=== PATIENT | male | born 1950 | race Caucasian/White ===

== ENCOUNTER 2024-04-15 22:38 | Emergency (ER) | payer MEDICARE, SELFPAY ==
[2024-04-15 22:38] VITALS: BMI 23.5
[2024-04-15 22:57] VITALS: BP 151/83; PULSE 91; RESP 18; TEMP 36.9; O2SAT 99
--- NOTE | 2024-04-15 23:01 | XR_ITS ---
Examination: Ultrasound soft tissue chest Technique: Multiple high resolution grayscale sonographic images soft tissue chest Exam date and time: April 15, 2024 11:15 PM Indications: Palpable lump on the left chest Larger the last month Findings: Soft tissue mass 2.1 x 1.2 x 2.2 cm at the area concern left chest Impression: Mixed echogenic soft tissue mass in the chest at the area concern 2.1 x 1.2 x 2.2 cm Differential would include complex cyst, abscess, less likely soft tissue tumor, clinical correlation advised
--- NOTE | 2024-04-15 23:02 | PD.EDRME ---
Rapid Medical Screening Exam [facility] Arrival date/time: 04/15/24 22:38 73M with history of HTN presents to ED with several weeks of worsening painful growth on chest. Chief Complaint: Chest Pain Vital signs: Vital Signs Temperature 98.5 F 04/15/24 22:57 Pulse Rate 91 04/15/24 22:57 Respiratory Rate 18 04/15/24 22:57 Blood Pressure 151/83 H 04/15/24 22:57 Pulse Oximetry (%) 99 04/15/24 22:57 Oxygen Delivery Method Room Air 04/15/24 22:57
--- NOTE | 2024-04-16 01:18 | EDNOTE_ITS ---
ED Skin Abcess FB-RME/HPI General Chief complaint: Chest Pain Stated complaint: CHEST PAIN X 3 WEEKS Arrival date/time: 04/15/24 22:38 RME / HPI RME / HPI narrative: 04/15/24 22:38 73M with history of HTN presents to ED with several weeks of worsening painful growth on chest. This section includes all my notes and documentations, including HPI, PE, and ED course. Junaid Newby MD HPI: 73-year-old male here with a couple week history of enlarging red lump in the anterior chest with swelling and warmth and pain. No fever or chills. No other complaints. ROS: Musculoskeletal: negative except as documented in HPI. Skin: negative except as documented in HPI. Neurological: negative except as documented in HPI. Physical Exam: General: Alert and oriented. No acute distress when remaining still. Eyes: Conjunctivae and lids clear. Lungs: No respiratory distress. Skin: Warm and dry. In the left anterior chest, there is a walnut sized fluctuant mass with erythema and edema and calor and soft tissue tenderness. Neuro: Alert and oriented X 3. At this point, diagnoses include skin abscess. Abscess I&D procedure note: The abscess area was prepped and draped in the usual sterile fashion. Using #15 blade, 0.5 cm incision made. Profuse pus drained out. Applied new dressing. Patient tolerated well. Treatment here included Augmentin and clindamycin. Provided good wound care instructions. Based on my best medical judgment, made decision no further evaluation or treatment indicated at this time. Patient understands and agrees to the discharge instructions customized and printed, see below. Discharge Instructions from Dr. Newby: ?Your abscess was successfully incised and drained pus. ?Take Augmentin and clindamycin to help kill the germs causing your infection. ?Three times per day (before the wound closes), try to squeeze out more pus and clean it with soap and water. ?After drying as much as possible, apply new dressing. ?See your private doctor of your choice on 04/17/2024 for recheck and further care, to make sure you are healing properly without any complications. ?Seek immediate medical care with fever > 100.4, spreading redness, or with any concerns. Junaid Newby MD Related Data Home Medications ?Medication ?Instructions ?Recorded ?Confirmed hydrochlorothiazide 25 mg tablet 25 mg PO QDAY 07/04/18 12/08/18 aspirin 81 mg chewable tablet 81 mg PO DAILY 12/08/18 12/08/18 Previous Rx's ?Medication ?Instructions ?Recorded amoxicillin 875 mg-potassium 1 tab PO BID #10 tabs 04/16/24 clavulanate 125 mg tablet clindamycin HCl 300 mg capsule 300 mg PO TID 5 days #15 caps 04/16/24 Allergies Allergy/AdvReac Type Severity Reaction Status Date / Time No Known Allergies Allergy Verified 04/15/24 22:40 Course Quality Measures none Orders Category Date Time Status EKG (ED Only) Stat Exams 04/15/24 22:39 Stop Req US soft tissue head neck Stat Exams 04/15/24 23:01 Completed Amoxicillin/Pot Clav 875 [Augmentin 875] Med 04/16/24 01:12 Discontinued 1 tab PO X1 ONE Clindamycin [Cleocin] Med 04/16/24 01:12 Discontinued 300 mg PO X1 ONE Vital Signs Vital signs: Vital Signs Temperature 98.5 F 04/15/24 22:57 Pulse Rate 91 04/15/24 22:57 Respiratory Rate 18 04/15/24 22:57 Blood Pressure 151/83 H 04/15/24 22:57 Pulse Oximetry (%) 99 04/15/24 22:57 Oxygen Delivery Method Room Air 04/15/24 22:57 Skin / Abscess / Foreign Body Patient data External records reviewed:: [facility] previous records Clinical information provided by:: patient Social determinants that could affect healthcare access:: none Patient has the following chronic illnesses:: See chart How is presenting disease/condition affected by chronic disease/condition?: uneffected by Evaluation data The following diagnostics were reviewed and interpreted by me:: radiology exam(s) Lab and/or radiology exams considered but not ordered:: None Interpretation Summary: Skin abscess Medications / Prescriptions Medications or Prescriptions considered but not ordered:: None Medication administrations:: Medication Administration History Discontinued Medications Amoxicillin/Clavulanate Potassium (Amoxicillin/Pot Clav 875 Tablet) 1 tab PO X1 ONE Stop: 04/16/24 01:13 Clindamycin HCl (Clindamycin 150 Mg Capsule) 300 mg PO X1 ONE Stop: 04/16/24 01:13 Augmentin and clindamycin Consultations Consultation(s) initiated? (list below): No Diagnosis Skin/Abscess Differential Diagnosis: abscess of skin or subcutaneous tissue, cellulitis and insect bites Most likely diagnosis given after review of the tests above:: Abscess Admission Indicated Admission indicated?: not indicated Explain why admission is indicated or not indicated:: No admission criteria Admission Request Was there a request for admission?: No Disposition Plan Disposition Plan: Discharge Discharge Attestation Discharge Attestation: The patient and all family members were given an opportunity to ask questions and understood the discharge instructions. Discharge instructions specifically effects, indications for sooner follow up or return to the emergency department, and the expected course of current diagnosis. Patient condition: Stable Discharge Plan Plan Patient Disposition: HOME (Self Care) Prescriptions/Referrals Prescriptions/Med Rec: New amoxicillin-pot clavulanate 875-125 mg tablet 1 tab PO BID Qty: 10 0RF clindamycin HCl 300 mg capsule 300 mg PO TID 5 Days Qty: 15 0RF No Action hydrochlorothiazide 25 mg tablet 25 mg PO QDAY Patient Comments: TAKE 1 TABLET BY MOUTH EVERY DAY aspirin 81 mg Tablet,Chewable 81 mg PO DAILY Referrals: No Primary/Family,Physician [Primary Care Provider] - In 1 week Problem List Clinical Impression: Abscess Patient/Caregiver Discharge Instructions Discharge Activity: activity as tolerated Education Materials: ED Abscess, Incision And Drainage Additional Instructions: Discharge Instructions from Dr. Newby: ?Your abscess was successfully incised and drained pus. ?Take Augmentin and clindamycin to help kill the germs causing your infection. ?Three times per day (before the wound closes), try to squeeze out more pus and clean it with soap and water. ?After drying as much as possible, apply new dressing. ?See your private doctor of your choice on 04/17/2024 for recheck and further care, to make sure you are healing properly without any complications. ?Seek immediate medical care with fever > 100.4, spreading redness, or with any concerns. Print Language: Czech Stand Alone Forms: Patience Award Info., Patient Portal Info Letter
[2024-04-16] MEDS: AMOXICILLIN/POT CLAV 875 TABLET 1 TAB PO (01:19)
[2024-04-16] MEDS: CLINDAMYCIN 150 MG CAPSULE 300 MG PO (01:19)
== END 2024-04-16 01:21 | disposition home or self-care (01) ==
PROVIDERS: Emergency Provider Emergency Medicine
DX: L02.213 Cutaneous abscess of chest wall (principal)
CPT/HCPCS: 10060; 76536; 76604; 99284; A9270